=== PATIENT | female | born 1985 | race African-American/Black ===

== ENCOUNTER 2018-09-08 13:10 | Outpatient (CLI) | payer BC ==
--- NOTE | 2018-09-08 14:38 | MMO ---
Bilateral MAMMO Bilat Diag [facility]. CLINICAL HISTORY: Patient is 33 years old and is seen for diagnostic exam and palpable abnormality in both breasts. The patient has no family history of breast cancer. The patient has no personal history of cancer. VIEWS: The views performed were: bilateral craniocaudal with tomosynthesis; bilateral mediolateral oblique with tomosynthesis; bilateral mediolateral; and bilateral exaggerated craniocaudal. FILMS COMPARED: The present examination has been compared to a prior imaging study performed at [facility] on 09/08/2018. MAMMOGRAM FINDINGS: There are scattered fibroglandular densities. There are no suspicious masses, suspicious calcifications, or new areas of architectural distortion. IMPRESSION: THERE IS NO MAMMOGRAPHIC EVIDENCE OF MALIGNANCY. A ROUTINE FOLLOW-UP MAMMOGRAM AT AGE 40 IS RECOMMENDED. THE RESULTS OF THIS EXAM WERE SENT TO THE PATIENT. ACR BI-RADS Category 1 - Negative MAMMOGRAPHY NOTE: 1. A negative mammogram report should not delay a biopsy if a dominant of clinically suspicious mass is present. 2. Approximately 10% to 15% of breast cancers are not detected by mammography. 3. Adenosis and dense breasts may obscure an underlying neoplasm.
--- NOTE | 2018-09-08 15:38 | ULT ---
BILATERAL BREAST ULTRASOUND: 09/08/18 HISTORY: Palpable mass in the upper outer aspect of both breasts. TECHNIQUE: Multiplanar sanchez scale and color Doppler images were obtained in a targeted ultrasound of the upper o uter aspect of both breasts. FINDINGS: Normal appearing breast parenchyma is seen. No cyst is seen. No suspicious shadowing or solid mass is seen on either side. IMPRESSION: BIRADS 1: Negative Routine annual screening mammography (for women over age 40) POS: ABRAHAM
== END 2018-09-08 13:11 | disposition home or self-care (01) ==
LOC: BICMAMMO 13:10
PROVIDERS: ATTEND Family Medicine
DX: N63.21 Unspecified lump in the left breast, upper outer quadrant (principal); N63.11 Unspecified lump in the right breast, upper outer quadrant
CPT/HCPCS: 77066; G0279

== ENCOUNTER 2020-06-06 09:21 | Outpatient (CLI) | payer BC | END 2020-06-06 09:22 | disposition home or self-care (01) | LOC: SCSRAD 09:21 | PROVIDERS: ATTEND Family Medicine | DX: R07.1 Chest pain on breathing (principal) | CPT/HCPCS: 71046 ==

== ENCOUNTER 2020-07-04 16:31 | Inpatient (IN) | payer BC ==
[2020-07-04 18:49] VITALS: BMI 41.2
[2020-07-04] MEDS ORDERED: Bisacodyl 5 MG TAB PO PRN (19:00)
[2020-07-04] MEDS ORDERED: Ondansetron PF 4 MG/2 ML Vial IVP PRN (19:00)
[2020-07-04] MEDS ORDERED: Ondansetron ODT 4 MG TAB PO PRN (19:00)
[2020-07-04] MEDS ORDERED: Guaifenesin DM 100-10/5 ML UDCUP PO PRN (19:00)
[2020-07-04] MEDS ORDERED: Senokot S 8.6-50 MG TAB PO PRN (19:00)
[2020-07-04 19:46] LABS: #Eosinphils 0.1 thou/uL (0.0-0.7); #Lymphocytes 2.6 thou/uL (1.20-3.40); #Monocytes 0.4 thou/uL (0.11-0.59); #Neutrophils 4.3 thou/uL (1.40-6.50); %Basophils 0.3 % (0.0-1.0); %Eosinophils 1.6 % (0.0-10.0); %Lymphocytes 34.3 % (21.0-51.0); %Monocytes 5.5 % (0.0-10.0); %Neutrophils 58.3 % (42.0-75.0); Hemoglobin 13.6 g/dL (12.0-16.0); Mean Corpuscular Hemoglobin 30.4 pg (27.0-31.0); Mean Corpuscular Volume 89.6 fL (78.0-98.0); Platelet Count 413 thou/uL (130-400); Red Blood Cell (RBC) Count 4.48 mill/uL (4.20-5.40); White Blood Cell (WBC) Count 7.4 thou/uL (4.8-10.8)
[2020-07-04 19:54] LABS: BHCG - Serum Negative (NEGATIVE); Pregs Control Background? CLEAR/WHITE (CLR/WHITE); Pregs Control Bar Appear? YES (CONTROL BAR)
[2020-07-04 20:07] LABS: ALT (SGPT) 14 U/L (8-55); AST (SGOT) 16 U/L (5-34); Albumin 4.1 g/dL (3.5-5.0); Alkaline Phosphatase 60 U/L (40-110); Anion Gap 17 mmol/L (10-20); BUN (Urea Nitrogen) 13 mg/dL (7.0-18.7); Bilirubin, Total 0.4 mg/dL (0.2-1.2); CRP (Inflammatory) 1.24 mg/dL (= or < 0.5); Calc. Creatinine Clearance 179 mL/min (70-130); Calcium 9.5 mg/dL (7.8-10.44); Carbon Dioxide 21 mmol/L (22-29); Chloride 102 mmol/L (98-107); Globulin 4.7 g/dL (2.4-3.5); Glucose 86 mg/dL (70-105); Magnesium 1.7 mg/dL (1.6-2.6); Potassium 3.5 mmol/L (3.5-5.1); Protein, Total 8.8 g/dL (6.0-8.3); Sodium 136 mmol/L (136-145)
[2020-07-04 20:20] LABS: Free T4 (Free Thyroxine) 1.01 ng/dL (0.70-1.48)
[2020-07-04 21:02] LABS: Bilirubin Negative (Negative); Blood, Urine 2+ (Negative); Clarity Turbid (Clear); Glucose, Urine (Dipstick) Normal (Negative); Ketone, Urine Negative (Negative); Leukocyte Negative Leu/uL (Negative); Nitrite Negative (Negative); Protein, Urine (Dipstick) 50 mg/dL (Neg-Trace); Squamous Epithelial 0-3 HPF (0-3); Urobilinogen Normal mg/dL (Less than 2); WBC/HPF 0-3 HPF (0-3)
[2020-07-04 21:03] LABS: Bacteria/HPF 1+ HPF (None Seen)
[2020-07-04] MEDS: Cefepime 1 GM in Sodium Chloride 0.9% 100 ML IVPB SCH (21:04)
[2020-07-04] MEDS: Famotidine 20 MG TAB PO SCH (21:04)
[2020-07-04] MEDS: Benzonatate 100 MG CAP PO PRN (21:04)
[2020-07-04 21:14] LABS: Strep pneumo Urine Ag NEGATIVE (NEGATIVE)
[2020-07-04] MEDS: VANCOMYCIN 1.75 GM/350 ML BAG 1.75 GM in Premix Bag 1 BAG IVPB SCH (22:27)
[2020-07-05] MEDS: Cefepime 1 GM in Sodium Chloride 0.9% 100 ML IVPB SCH (08:02)
[2020-07-05] MEDS: Famotidine 20 MG TAB PO SCH (08:02)
[2020-07-05] MEDS: Saccharomyces boulardii 250 MG CAP PO SCH (08:02)
[2020-07-05] MEDS: Enoxaparin Sodium 40 MG/0.4 ML SYRINGE SC SCH (08:03)
[2020-07-05] MEDS ORDERED: methylPREDNISolone Sod Succ 40 MG VIAL IVP SCH (09:00)
[2020-07-05] MEDS: Liothyronine Sodium 5 MCG TAB PO SCH (09:22)
[2020-07-05] MEDS: Chlorthalidone 25 MG TAB PO SCH (09:22)
[2020-07-05] MEDS: Amlodipine 5 MG TAB PO SCH (09:40)
[2020-07-05] MEDS: Losartan 25 MG TAB PO SCH (09:41)
[2020-07-05] MEDS: VANCOMYCIN 1.75 GM/350 ML BAG 1.75 GM in Premix Bag 1 BAG IVPB SCH (10:54)
[2020-07-05] MEDS ORDERED: Levothyroxine Sodium 75 MCG TAB PO SCH (11:00)
[2020-07-05] MEDS ORDERED: Iopamidol-370 76% 500 ML 1 ML ONE (11:38)
[2020-07-05 16:52] LABS: Actual Bicarbonate (HCO3a) 23.4 mEq/L (22-28); CO2 Tension 38.2 mmHg (35.0-45.0); Hemoglobin (Hb) 13.8 g/dL (12.0-16.0); O2 Tension (PaO2), arterial 76.2 mmHg (80.0-100.0); pH, Arterial 7.41 (7.35-7.45)
[2020-07-05 16:53] LABS: Carboxyhemoglobin (COHb) 0.3 gm% (0.0-3.0); Potassium - ABG Lab 4.04 mmol/L (3.70-5.30)
[2020-07-05 16:55] LABS: Puncture Site RRA
[2020-07-05] MEDS: Benzonatate 100 MG CAP PO PRN (20:04)
[2020-07-05] MEDS: Acetaminophen 325 MG TAB PO PRN (20:04)
[2020-07-06] MEDS: Levothyroxine Sodium 75 MCG TAB PO SCH (05:34)
[2020-07-06] MEDS: Liothyronine Sodium 5 MCG TAB PO SCH (07:44)
[2020-07-06] MEDS: Saccharomyces boulardii 250 MG CAP PO SCH (07:45)
[2020-07-06] MEDS: Chlorthalidone 25 MG TAB PO SCH (07:47)
[2020-07-06] MEDS: Enoxaparin Sodium 40 MG/0.4 ML SYRINGE SC SCH (07:48)
[2020-07-06] MEDS: Losartan 25 MG TAB PO SCH (07:48)
[2020-07-06] MEDS: Amlodipine 5 MG TAB PO SCH (07:48)
[2020-07-06] MEDS: Acetaminophen 325 MG TAB PO PRN (13:54)
[2020-07-06 14:37] LABS: Antinuclear AB Negative (Negative); Complement-C3 (Sendout) 206 mg/dL (82-167); Complement-C4 (Sendout) 44 mg/dL (12-38); DSDNA Autoabs (FARR) Sendout 1 IU/mL (0-9); Smooth Muscle Total Antibodies <0.2 AI (0.0-0.9); Thyroid Peroxidase Ab-Sendout 10 IU/mL (0-34); U1 RNP/snRNP IgG Autoabs <0.2 AI (0.0-0.9)
[2020-07-07] MEDS: Levothyroxine Sodium 75 MCG TAB PO SCH (05:52)
[2020-07-07] MEDS: Liothyronine Sodium 5 MCG TAB PO SCH (08:29)
[2020-07-07] MEDS: Chlorthalidone 25 MG TAB PO SCH (08:29)
[2020-07-07] MEDS: Enoxaparin Sodium 40 MG/0.4 ML SYRINGE SC SCH (08:29)
[2020-07-07] MEDS: Saccharomyces boulardii 250 MG CAP PO SCH (08:29)
[2020-07-07] MEDS: Amlodipine 5 MG TAB PO SCH (08:30)
[2020-07-07] MEDS: Losartan 25 MG TAB PO SCH (08:30)
[2020-07-07] MEDS: methylPREDNISolone Sod Succ 40 MG VIAL IVP SCH ×2 (12:15→17:37)
[2020-07-07] MEDS: Mometasone 200 MCG/Formoterol 5 MCG 120 PUFF INHALER INH SCH (18:28)
[2020-07-07] MEDS: Doxycycline 100 MG CAP PO SCH (21:46)
[2020-07-08] MEDS: methylPREDNISolone Sod Succ 40 MG VIAL IVP SCH ×4 (00:21→17:46)
[2020-07-08] MEDS: Levothyroxine Sodium 75 MCG TAB PO SCH (06:19)
[2020-07-08] MEDS: Mometasone 200 MCG/Formoterol 5 MCG 120 PUFF INHALER INH SCH ×2 (07:22→18:40)
[2020-07-08] MEDS: Enoxaparin Sodium 40 MG/0.4 ML SYRINGE SC SCH (08:18)
[2020-07-08] MEDS: Amlodipine 5 MG TAB PO SCH (08:18)
[2020-07-08] MEDS: Losartan 25 MG TAB PO SCH (08:18)
[2020-07-08] MEDS: Saccharomyces boulardii 250 MG CAP PO SCH (08:18)
[2020-07-08] MEDS: Chlorthalidone 25 MG TAB PO SCH (08:18)
[2020-07-08] MEDS: Liothyronine Sodium 5 MCG TAB PO SCH (08:18)
[2020-07-08] MEDS: Doxycycline 100 MG CAP PO SCH ×2 (08:21→22:09)
[2020-07-08 23:36] LABS: Mycoplasma pneumoniae IgG AB Less than 100 U/mL (0-99); Mycoplasma pneumoniae IgM AB Less than 770 U/mL (0-769)
[2020-07-09] MEDS: methylPREDNISolone Sod Succ 40 MG VIAL IVP SCH ×2 (00:01→05:40)
[2020-07-09] MEDS: Levothyroxine Sodium 75 MCG TAB PO SCH (05:40)
[2020-07-09] MEDS: Mometasone 200 MCG/Formoterol 5 MCG 120 PUFF INHALER INH SCH (06:52)
[2020-07-09 08:09] VITALS: BP 144/82; TEMP 97.8
[2020-07-09] MEDS: Enoxaparin Sodium 40 MG/0.4 ML SYRINGE SC SCH (08:14)
[2020-07-09] MEDS: Saccharomyces boulardii 250 MG CAP PO SCH (08:15)
[2020-07-09] MEDS: Doxycycline 100 MG CAP PO SCH (08:15)
[2020-07-09] MEDS: Losartan 25 MG TAB PO SCH (08:15)
[2020-07-09] MEDS: Liothyronine Sodium 5 MCG TAB PO SCH (08:15)
[2020-07-09] MEDS: Amlodipine 5 MG TAB PO SCH (08:15)
[2020-07-09] MEDS: Chlorthalidone 25 MG TAB PO SCH (08:15)
[2020-07-09 10:58] LABS: ANA Symphony (Qualitative) Negative (Negative); ANA Symphony (Quantitative) 0.3 Ratio (< 0.7 Negative); EliA RAS New Method **** NEW METHOD ****; EliA Thy New Method **** NEW METHOD ****; EliA Vaculitis New Method **** NEW METHOD ****; Mitochondrial Ab 2.1 U/mL (<4 Negative); Rheumatoid Factor IgA Antibody 2.4 IU/mL (<14 Negative); Rheumatoid Factor IgM Antibody 4.6 IU/mL (<3.5 Negative); Thyroid Peroxidase IgG Ab Less than 4.0 IU/mL (<25 Normal); dsDNA IgG Antibody 1.3 IU/mL (<10 Negative)
[2020-07-09 14:38] LABS: Cytoplasmic (C-ANCA) <1:20 titer (Neg:<1:20); Perinuclear (P-ANCA) <1:20 titer (Neg:<1:20)
[2020-07-10 16:36] LABS: A. flavus Negative (Neg:<1:1); A. fumigatus Negative (Neg:<1:1); A. niger Negative (Neg:<1:1); Blastomyces AB Negative (Neg:<1:1)
== END 2020-07-09 10:55 | disposition home or self-care (01) | DRG 189 ==
LOC: T4-A 17:14
PROVIDERS: ADMIT Internal Medicine; ATTEND Internal Medicine
DX: J96.01 Acute respiratory failure with hypoxia (principal); J18.9 Pneumonia, unspecified organism; Z68.41 Body mass index [BMI] 40.0-44.9, adult; E66.01 Morbid (severe) obesity due to excess calories; J45.909 Unspecified asthma, uncomplicated; I10 Essential (primary) hypertension; E03.9 Hypothyroidism, unspecified; E28.2 Polycystic ovarian syndrome; Z20.822 Contact with and (suspected) exposure to COVID-19; F41.9 Anxiety disorder, unspecified; Z88.2 Allergy status to sulfonamides; Z79.899 Other long term (current) drug therapy; Z79.890 Hormone replacement therapy; Z80.0 Family history of malignant neoplasm of digestive organs; Z82.49 Family history of ischemic heart disease and other diseases of the circulatory system; Z83.3 Family history of diabetes mellitus; Z83.2 Family history of diseases of the blood and blood-forming organs and certain disorders involving the immune mechanism
CPT/HCPCS: 36415; 36416; 36600; 71045; 71275; 80053; 81001; 82785; 82805; 83516; 83520; 83605; 83735; 83880; 84145; 84439; 84443; 84481; 84484; 84703; 85025; 85652; 86038; 86140; 86160; 86200; 86225; 86235; 86256; 86376; 86612; 86635; 86698; 87040; 87070; 87107; 87205; 87385; 87449; 93005; 93010; J0692; J1650; J2920; J3370; J3490; Q9967

== ENCOUNTER 2022-06-15 07:48 | Outpatient (CLI) | payer BC | END 2022-06-15 07:49 | disposition home or self-care (01) | LOC: ULT 07:48 | PROVIDERS: ATTEND Internal Medicine Rheumatology | DX: R74.8 Abnormal levels of other serum enzymes (principal); R16.0 Hepatomegaly, not elsewhere classified; K82.4 Cholesterolosis of gallbladder; K76.0 Fatty (change of) liver, not elsewhere classified | CPT/HCPCS: 76705 ==

== ENCOUNTER 2022-06-23 07:29 | Outpatient (CLI) | payer BC ==
[2022-06-23] MEDS ORDERED: Iopamidol 370 76% 100 ML VIAL ONE (08:57)
== END 2022-06-23 07:30 | disposition home or self-care (01) ==
LOC: CT 07:29
PROVIDERS: ATTEND Internal Medicine Rheumatology
DX: R74.8 Abnormal levels of other serum enzymes (principal); K76.0 Fatty (change of) liver, not elsewhere classified; K76.9 Liver disease, unspecified
CPT/HCPCS: 74160; Q9967